=== PATIENT | male | born 1950 | race African-American/Black ===

== ENCOUNTER 2021-05-14 19:32 | Emergency (ER) | payer MEDICAID, MEDICARE ==
[~2021-05-14] VITALS: Ht 175.3 cm; Wt 140.9 kg
[~2021-05-14 19:32] MED LIST: ASPI-1009 PO; INSU100V9 SQ; METF-1157 PO; VALS160T2 PO
[2021-05-14 19:39] VITALS: BP 184/113
[2021-05-14 20:14] LABS: CLARITY,URINE CLOUDY (Clear); GLUCOSE, URINE NEGATIVE (Neg); KETONES,URINE TRACE mg/dl (Neg); LEUKOCYTE ESTERASE ,URINE MODERATE (Neg); NITRITES, URINE POSITIVE (Neg); OCCULT BLOOD,URINE LARGE (Neg); PH,URINE 7.5 (4.8-8.0); PROTEIN,URINE 100 mg/dl (Neg)
[2021-05-14 20:16] LABS: UA COLLECTION TYPE CLN CATCH MIDSTREAM
[2021-05-14 20:17] LABS: COLOR,URINE PINK (Yellow)
[2021-05-14 20:22] LABS: BACTERIA,URINE 2+ /HPF (Neg); RBC,URINE TNTC /HPF (0-2); SQUAMOUS EPITHELIAL CELL,UR FEW /LPF (FEW); WBC,URINE 20-30 /HPF (0-4)
[2021-05-14 20:23] LABS: WBC CLUMPS,URINE FEW /HPF (NEGATIVE)
[2021-05-14] MEDS ORDERED: cephalexin 250mg capsule PO ONE (21:00)
[2021-05-14] MEDS ORDERED: CEPH250T PO (21:33)
== END 2021-05-14 21:43 | disposition home or self-care (01) ==
LOC: ER 19:33
DX: N39.0 Urinary tract infection, site not specified (principal); I10 Essential (primary) hypertension; R31.9 Hematuria, unspecified; Q61.9 Cystic kidney disease, unspecified; N40.0 Benign prostatic hyperplasia without lower urinary tract symptoms; E78.00 Pure hypercholesterolemia, unspecified; E11.9 Type 2 diabetes mellitus without complications; Z79.82 Long term (current) use of aspirin; Z79.899 Other long term (current) drug therapy
CPT/HCPCS: 76770; 81001; 87088; 99284

== ENCOUNTER 2022-04-22 23:18 | Emergency (ER) | payer MEDICARE ==
[~2022-04-22] VITALS: Ht 177.8 cm; Wt 127.3 kg
[2022-04-23 00:42] LABS: BASOPHILS % (AUTO) 0.2 % (0-1); EOSINOPHILS # (AUTO) 0.2 X10'3 (0-0.9); HEMATOCRIT 44.7 % (42.0-52.0); HEMOGLOBIN 15.3 g/dl (14.0-17.9); LYMPHOCYTES # (AUTO) 2.6 X10'3 (1.1-4.8); LYMPHOCYTES % (AUTO) 28.9 % (21-51); MEAN CORPUSCULAR HEMOGLOBIN 31.1 PG (27.0-31.0); MEAN CORPUSCULAR HGB CONC 34.2 g/dL (33.0-36.5); MEAN CORPUSCULAR VOLUME 90.8 FL (78-98); MEAN PLATELET VOLUME 8.5 FL (7.4-10.4); MONOCYTES # (AUTO) 0.7 X10'3 (0-0.9); MONOCYTES % (AUTO) 7.5 % (2-12); NEUTROPHILS # (AUTO) 5.6 X10'3 (1.8-7.7); NEUTROPHILS % (AUTO) 61.4 % (42-75); PLATELET COUNT 262 X10'3 (140-440); RED BLOOD COUNT 4.92 X10'6 (4.70-6.10); RED CELL DISTRIBUTION WIDTH 14.3 % (11.5-14.5); WHITE BLOOD COUNT 9.2 X10'3 (4.5-11.0)
[2022-04-23 00:58] LABS: ALANINE AMINOTRANSFERASE 18 U/L (12-78); ALBUMIN 3.6 G/DL (3.4-5.0); ALBUMIN/GLOBULIN RATIO 0.9 (1.1-1.5); ALKALINE PHOSPHATASE 84 IU/L (46-116); ANION GAP 8 (8-16); ASPARTATE AMINO TRANSFERASE 22 U/L (10-37); BILIRUBIN,TOTAL 0.5 MG/DL (0.1-1.0); BLOOD UREA NITROGEN 14 MG/DL (7-18); BUN/CREATININE RATIO 10.8 (5.4-32.0); CHLORIDE 106 MMOL/L (99-107); GLUCOSE 117 MG/DL (70-104); LIPASE 120 U/L (73-393); POTASSIUM 3.7 MMOL/L (3.5-5.1); SODIUM 143 MMOL/L (135-145); TOTAL CARBON DIOXIDE 29.3 MMOL/L (24-32); TOTAL PROTEIN 7.6 G/DL (6.4-8.2); eGFR 65 ML/MIN
[2022-04-23 01:03] LABS: CLARITY,URINE CLEAR (Clear); COLOR,URINE YELLOW (Yellow); GLUCOSE, URINE NEGATIVE (Neg); KETONES,URINE NEGATIVE (Neg); LEUKOCYTE ESTERASE ,URINE NEGATIVE (Neg); NITRITES, URINE NEGATIVE (Neg); OCCULT BLOOD,URINE NEGATIVE (Neg); PROTEIN,URINE NEGATIVE (Neg)
[2022-04-23 01:13] LABS: UA COLLECTION TYPE VOIDED
[2022-04-23] MEDS ORDERED: normal saline 1000ML IV soln IVB ONE (01:40)
[2022-04-23] MEDS ORDERED: ketorolac trometh. 30mg/ml inj. IV ONE (01:40)
[2022-04-23] MEDS ORDERED: ketorolac trometh. 30mg/ml inj. IM ONE (01:55)
[2022-04-23 02:16] VITALS: BP 158/106
== END 2022-04-23 02:18 | disposition home or self-care (01) ==
LOC: ER 23:18
DX: K80.50 Calculus of bile duct without cholangitis or cholecystitis without obstruction (principal); I10 Essential (primary) hypertension; E78.00 Pure hypercholesterolemia, unspecified; E11.9 Type 2 diabetes mellitus without complications
CPT/HCPCS: 36415; 80053; 81003; 83690; 85025; 96372; 99283; J1885; J7030

== ENCOUNTER 2022-05-09 01:50 | Emergency (ER) | payer MEDICARE ==
[~2022-05-09] VITALS: Ht 175.3 cm; Wt 130.0 kg
[2022-05-09 02:00] VITALS: BP 125/92
[2022-05-09] MEDS ORDERED: ketorolac trometh inj. 60 MG/2 ML VIAL IM ONE (03:25)
[2022-05-09] MEDS ORDERED: acetaminophen 325mg tablet PO ONE (03:25)
== END 2022-05-09 05:03 | disposition home or self-care (01) ==
LOC: ER 01:50
DX: M54.59 Other low back pain (principal); M25.442 Effusion, left hand; I10 Essential (primary) hypertension; E11.9 Type 2 diabetes mellitus without complications; E78.00 Pure hypercholesterolemia, unspecified; Z79.899 Other long term (current) drug therapy; Z79.1 Long term (current) use of non-steroidal anti-inflammatories (NSAID)
CPT/HCPCS: 72131; 96372; 99285; J1885

== ENCOUNTER 2024-07-21 09:14 | Inpatient (IN) | payer MEDICARE ==
[2024-07-21] VITALS (14 sets, daily range): BP systolic 93–121; BP diastolic 63–85; PULSE 80–115; RESP 16–19; TEMP 97.9–98.3; O2SAT 92–98
[~2024-07-21] VITALS: Ht 175.3 cm; Wt 110.0 kg
--- NOTE | 2024-07-21 09:20 | ELECTROCARDIOGRAPH REPORT ---
[facility] Test Date: 2024-07-21 Test Time: 09:19:43 Pat Name: ARNOL LAGUERRE Department: EMERGENCY ROOM Room: Gender: M Retail Business Manager: BRADLY : 1950 Requested By: CLARIBEL ARZATE Order Number: [id number] Reading MD: Dr. Claribel Arzate Measurements Intervals [place] Rate: 105 P: -52 CT: 186 QRS: -71 QRSD: 144 T: 68 QT: 382 QTc: 506 Interpretive Statements Sinus or ectopic atrial tachycardia Probable left atrial enlargement Right bundle branch block Inferior infarct, old Probable anterior infarct, age indeterminate Lateral leads are also involved Electronically Signed On 07-21-2024 9:41:[address] Claribel Arzate Please click the below link to view image of tracing.
--- NOTE | 2024-07-21 10:09 | Physician Documentation ---
History of Present Illness ~ Chief Complaint: Chest Pain Stated Complaint: CP Time Seen by MD: 09:28 OK to notify your PCP?: Yes Primary Medical Doctor: dr. lopez Source: patient, RN/MD Mode of Arrival: EMS Exam Limitations: no limitations HPI 74 year old male with a history of diabetes seen in bed 10 presents to the emergency department via EMS from home for complaints of chest pain that began at 0800 today. Patient states he was at rest on his couch when pain began and states that it radiates to his jaw. Patient denies any cardiac history. Patient denies any other associated symptoms at this time. Patient denies any other alleviating or exacerbating factors. Medication Reconciliation Allergies: Coded Allergies: No Known Allergies (Unverified , 04/22/22) Scheduled Amlodipine* (Norvasc*), 5 TAB PO DAILY, (Reported) Atorvastatin Calcium (Atorvastatin Calcium), 1 TAB PO DAILY, (Reported) Lisinopril* (Lisinopril*), 1 TAB PO DAILY, (Reported) Metformin Hcl* (Glucophage*), 850 MG PO BID, (Reported) Discontinued Medications Amlodipine Besylate (Amlodipine Besylate), 1 TAB PO DAILY, (Reported) Discontinued Reason: patient no longer taking Aspirin (Aspirin), 81 MG PO DAILY Discontinued Reason: patient no longer taking Insulin Glargine,Hum.rec.anlog (Lantus), 10 UNIT SQ PRN Discontinued Reason: patient no longer taking Valsartan* (Diovan*), 160 MG PO Q24H Discontinued Reason: patient no longer taking Past Medical History Past Medical History: High Cholesterol, Hypertension, Diabetes Past Surgical History: no surgical history Alcohol Use: None Drug Use: none Lives with: Spouse Lives In: Home Review of Systems All Other Systems at this time: Reviewed and Negative ROS As stated above in the HPI, otherwise all systems are reviewed and negative. Physical Exam Vital Signs: RN Vital Signs have been reviewed: Yes, Temperature: 97.9, Source: Oral, Heart Rate: 108, Respiratory Rate: 14, BP: 95/65, Pulse Oximetry: 99, Weight: 110.000 Oxygen Flow Rate: 3.0 Pulse Oximetry Reflects: adequate oxygenation Physical Exam General: The patient is well developed, well nourished, nontoxic appearing and is in no acute distress. Skin: Joyce, warm and dry with no rashes. HEENT: Head was normocephalic and atraumatic. Eyes - pupils equal, round, reactive to light and accommodation. Extraocular movements were intact. Conjunctivae were nonicteric. Ears - bilateral tympanic membranes were normal. The mouth and oropharynx were clear with moist mucous membranes. There were no pharyngeal exudates or erythema. Neck: Supple and nontender. There was no jugular venous distention, lymphadenopathy, thyromegaly or masses. Chest: Clear to auscultation bilaterally without wheezes, rales or rhonchi. No accessory muscle use. No dullness to percussion. Heart: Rate regular and rhythmic. S1, S2. No murmurs. Palpation of the chest wall was normal. No rubs or thrills. Abdomen: Soft, nontender and nondistended. Positive bowel sounds. No guarding or rebound. No hepatosplenomegaly or palpable masses. Extremities: No cyanosis, clubbing or edema. The patient moves all extremities. Pulses were equal and symmetric. Neurologic: Cranial nerves II-XII were intact. Sensation was intact to light touch throughout. Motor strength was 5/5 in all four extremities. Deep tendon reflexes were intact in both upper and lower extremities. Psychologic: The patient was oriented to person, place and time. The patient demonstrated appropriate judgement and insight. Progress Progress Note 1124: The case was discussed with [facility] team who were informed on the patients case and kindly agreed to admission. Results/Orders Reviewed/noted all lab results: Yes Results/Orders Orders - YEVGENIY TRAN MD Chest,Single View (07/21/24 09:15) Monitor (07/21/24:15) Saline Lock (07/21/24:15) Oxygen (07/21/24:15) Electrocardiogram (07/21/24:15) Electrocardiogram (07/21/24:15) Page Hospitalist (07/21/24 11:) Fill Out Med Reconciliation (07/21/24:) Page Hospitalist (07/21/24:) Completed Orders - YEVGENIY TRAN MD Chest,Single View (07/21/24 09:15) Cbc/Diff (07/21/24 09:15) BMP (07/21/24 09:15) PBNP (07/21/24 09:15) Electrocardiogram (07/21/24 09:15) Hs Troponin I W Calculations (07/21/24 09:15) Hs Troponin I W Calculations (07/21/24 11:15) Hs Troponin I W Calculations (07/21/24 12:15) MG (07/21/24 09:15) Electrocardiogram (07/21/24 09:15) Pt Inr (07/21/24 09:15) PTT (07/21/24 09:15) Nitroglycerin 0.4mg/Hr Patch (Nitro-Dur (07/21/24 11:15) Ua With Microscopic (07/21/24 11:01) Hgb A1c (07/21/24 10:10) Vital Signs 07/21/24 07/21/24 07/21/24 07/21/24 09:21 09:46 09:56 10:11 Temp 97.9 Pulse 108 102 Resp 14 15 B/P (MAP) 95/65 106/66 (79) Pulse Ox 99 96 O2 Delivery Nasal Cannula* O2 Flow Rate 3.0 3 2.0 FiO2 32 Laboratory Tests Test 07/21/24 10:10 07/21/24 11:01 07/21/24 11:18 White Blood Count 9.0 Red Blood Count 4.83 Hemoglobin 15.4 Hematocrit 45.1 Mean Corpuscular Volume 93.3 Mean Corpuscular Hemoglobin 31.9 H Mean Corpuscular Hemoglobin Concent 34.2 Red Cell Distribution Width 14.1 Platelet Count 223 Mean Platelet Volume 8.6 Neutrophils (%) (Auto) 75.9 H Lymphocytes (%) (Auto) 14.3 L Monocytes (%) (Auto) 8.0 Eosinophils (%) (Auto) 1.6 Basophils (%) (Auto) 0.2 Neutrophils # (Auto) 6.8 Lymphocytes # (Auto) 1.3 Monocytes # (Auto) 0.7 Eosinophils # (Auto) 0.1 Basophils # (Auto) 0.0 CBC Comment Prothrombin Time 10.3 INR International Normalized Ratio 1.0 Activated Partial Thromboplast Time 30 Coagulation Comments Sodium Level 145 Potassium Level 4.0 Chloride Level 108 H Carbon Dioxide Level 30.7 Anion Gap 6 L Blood Urea Nitrogen 12 Creatinine 1.30 H Estimated GFR/1.73 m2 65 BUN/Creatinine Ratio 9.2 L Glucose Level 143 H Hemoglobin A1c 5.7 Calcium Level 8.9 Magnesium Level 1.6 Troponin I High Sensitivity 10 12 Pro-B-Type Natriuretic Peptide 126 Albumin 3.1 L Chemistry Comments Urine Specimen Description Cln catch midstream Urine Color Yellow Urine Clarity Clear Urine pH 6.0 Urine Specific [place] 1.010 Urine Protein Negative Urine Glucose (UA) Negative Urine Ketones Negative Urine Occult Blood Negative Urine Nitrite Negative Urine Bilirubin Negative Urine Urobilinogen 4.0 H Urine Leukocyte Esterase Small H Urine RBC None seen Urine WBC 5-10 H Urine Squamous Epithelial Cells Few Urine Bacteria None seen Urine Mucus Few Volume Urine Centrifuged 10 ml Urine Comment Urine Opiates Screen Negative Urine Methadone Screen Negative Urine Fentanyl Screen Negative Urine Barbiturates Screen Negative Urine Phencyclidine Screen Negative Urine Amphetamines Screen Negative Urine Benzodiazepines Screen Negative Urine Cocaine Screen Negative Urine Cannabinoids Screen Negative Drug Screen Comment Troponin I High Sens Percent Delta 20 Troponin I Hi Sens Absolute Change 2 Re-Evaluation Re-Evaluation : Re-Evaluation: Improved Progress Patient was seen and examined. Patient was given reassurance. Patient was complaining of some chest pain. Laboratory work was obtained patient was placed on a monitor. Patient's troponins were negative. Patient's creatinine was slightly elevated at 1.30 and glucose was elevated at 143. Troponins were negative. CBC within normal limits coagulation within normal limits D-dimer slightly elevated at 1.38 negative tox screen urinalysis showed some leukocyte esterase as well as elevated WBCs consistent with the UTI. Patient was then admitted to the hospitalist service for further workup and care. CTA was obtained and was negative for pulmonary embolism. Patient will be admitted for cardiac stress test or possible cardiac catheterization if indicated. Patient did received nitroglycerin and then later some pain medications including narcotics. Hospitalist was consulted and they gave him subcu heparin and admitted him for further workup and care. Continuous front desk monitor interpretation shows sinus tachycardia heart rate 100s, abnormal, my interpretation. Pulse oximetry monitor interpretation shows some low oxygenation at 99% on 3 L oxygen. EKG/XRAY/CT/US/VASC/MRI EKG #1: Additional Comment [facility] Test Date: 2024-07-21 Test Time: 10:48:50 Pat Name: ARNOL LAGUERRE Department: [facility]- Patient ID: [id number] Room: Gender: M Computer Game Programmer: : 1950 Requested By: YEVGENIY TRAN Order Number: [id number] Reading MD: Dr. Yevgeniy Tran Measurements Intervals [place] Rate: 105 P: 119 WI: 197 QRS: 129 QRSD: 147 T: 23 QT: 363 QTc: 480 Interpretive Statements Sinus tachycardia Probable left atrial enlargement RBBB and LPFB Probable anterior infarct, age indeterminate Lateral leads are also involved Electronically Signed On 07-21-2024 11:17:[address] Yevgeniy Tran Please click the below link to view image of tracing. EKG Date and Time:07/21/24 1048 Electronically Signed by: YEVGENIY TRAN MD Date and Time: 07/21/24 1117 EKG #2: Additional Comment [facility] Test Date: 2024-07-21 Test Time: 09:19:43 Pat Name: ARNOL LAGUERRE Department: EMERGENCY ROOM Room: Gender: Computer Game Programmer: BRADLY : 1950 Requested By: YEVGENIY TRAN Order Number: [id number] Machelle MD: Dr. Yevgeniy Tran Measurements Intervals [place] Rate: 105 P: -52 WI: 186 QRS: -71 QRSD: 144 T: 68 QT: 382 QTc: 506 Interpretive Statements Sinus or ectopic atrial tachycardia Probable left atrial enlargement Right bundle branch block Inferior infarct, old Probable anterior infarct, age indeterminate Lateral leads are also involved Electronically Signed On 07-21-2024 9:41:[address] Yevgeniy Tran Please click the below link to view image of tracing. EKG Date and Time:07/21/24 0919 Electronically Signed by: YEVGENIY TRAN MD Date and Time: 07/21/24 0941 Chest X-Ray : Additional Comments DI CHEST,SINGLE VIEW, HISTORY: CP COMPARISON: None None TECHNICAL DATA: 1 view of the chest was obtained. FINDINGS: Lines and tubes: None Cardiomediastinal silhouette: normal Pulmonary vasculature: normal Lung expansion: normal Lung airspace: normal Lung interstitium: normal Pleura: normal Pneumothorax: no Bones: Unremarkable Other: no IMPRESSION: No acute intrathoracic abnormality. Electronically Signed by:MONTEZ BELTRAN MD Date & Time: 07/21/24 1008 Heart Score: Heart Score Response (Comments) Value History Highly Suspicious 2 EKG Repolarization Disturb 1 Age >65 2 Risk Factors 1 or 2 risk factors 1 Troponin Normal limit 0 Total 6 Medical Decision Making Additional info obtained from: old records Differential Dx:Considerations: Include: angina, aortic dissection, chest wall pain, cholelithiasis, CHF, costochondritis, esophageal reflux/spasm, gastritis, myocardial infarction, pericarditis, pleuritis, pneumothorax, pulmonary embolus, other Departure Time of Disposition: 11:29 Disposition: 09 ADMITTED INPATIENT Admitted to Inpatient Unit: yes, to hospitalist Impression: Primary Impression: Unstable angina Condition: Guarded Referrals: NO PRIMARY CARE PROVIDER (PCP) Education Educated: Patient Educated regarding: diagnosis Signature Scribe Signature: Scribed for Yevgeniy Tran MD by Latia Nguyen . 07/21/24 11:06 Attestation: The note accurately reflects work and decisions made by me.Yevgeniy Tran MD 07/23/24 04:11 YEVGENIY TRAN MD Jul 21, 2024 10:09 LATIA KOEHLER Jul 21, 2024 11:06
[2024-07-21 10:24] LABS: BASOPHILS % (AUTO) 0.2 % (0-1); EOSINOPHILS # (AUTO) 0.1 X10'3 (0-0.9); EOSINOPHILS % (AUTO) 1.6 % (0-6); HEMATOCRIT 45.1 % (42.0-52.0); HEMOGLOBIN 15.4 g/dl (14.0-17.9); LYMPHOCYTES # (AUTO) 1.3 X10'3 (1.1-4.8); LYMPHOCYTES % (AUTO) 14.3 % (21-51); MEAN CORPUSCULAR HEMOGLOBIN 31.9 PG (27.0-31.0); MEAN CORPUSCULAR HGB CONC 34.2 g/dL (33.0-36.5); MEAN CORPUSCULAR VOLUME 93.3 FL (78-98); MEAN PLATELET VOLUME 8.6 FL (7.4-10.4); MONOCYTES # (AUTO) 0.7 X10'3 (0-0.9); NEUTROPHILS # (AUTO) 6.8 X10'3 (1.8-7.7); NEUTROPHILS % (AUTO) 75.9 % (42-75); PLATELET COUNT 223 X10'3 (140-440); RED BLOOD COUNT 4.83 X10'6 (4.70-6.10); RED CELL DISTRIBUTION WIDTH 14.1 % (11.5-14.5)
[2024-07-21 10:32] LABS: APTT 30 SECONDS (22-32); PROTHROMBIN TIME 10.3 SECONDS (9.0-12.0)
[2024-07-21 10:41] LABS: ALBUMIN 3.1 G/DL (3.4-5.0); ANION GAP 6 (8-16); BLOOD UREA NITROGEN 12 MG/DL (7-18); BUN/CREATININE RATIO 9.2 (10.0-20.0); CALCIUM 8.9 MG/DL (8.5-10.1); CHLORIDE 108 MMOL/L (99-107); GLUCOSE 143 MG/DL (70-104); MAGNESIUM 1.6 MG/DL (1.5-2.4); PRO BRAIN NATRIURETIC PEPTIDE 126 PG/ML (0-450); SODIUM 145 MMOL/L (135-145); TOTAL CARBON DIOXIDE 30.7 MMOL/L (24-32); eCRCL 48 ML/MIN; eGFR 65 ML/MIN
--- NOTE | 2024-07-21 10:50 | ELECTROCARDIOGRAPH REPORT ---
[facility] Test Date: 2024-07-21 Test Time: 10:48:50 Pat Name: ARNOL LAGUERRE Department: [facility] Patient ID: [facility]-[id number] Room: Gender: M Retail Wireless Sales Representative: : 1950 Requested By: CLARIBEL ARZATE Order Number: [id number] Reading MD: Dr. Claribel Arzate Measurements Intervals [place] Rate: 105 P: 119 NM: 197 QRS: 129 QRSD: 147 T: 23 QT: 363 QTc: 480 Interpretive Statements Sinus tachycardia Probable left atrial enlargement RBBB and LPFB Probable anterior infarct, age indeterminate Lateral leads are also involved Electronically Signed On 07-21-2024 11:17:[address] Clariebl Arzate Please click the below link to view image of tracing.
[2024-07-21] MEDS: nitroGLYCERIN 0.4mg/hour patch TD ONE (11:20)
[2024-07-21 11:24] LABS: BILIRUBIN,URINE NEGATIVE (Neg); CLARITY,URINE CLEAR (Clear); COLOR,URINE YELLOW (Yellow); GLUCOSE, URINE NEGATIVE (Neg); KETONES,URINE NEGATIVE (Neg); LEUKOCYTE ESTERASE ,URINE SMALL (Neg); NITRITES, URINE NEGATIVE (Neg); OCCULT BLOOD,URINE NEGATIVE (Neg); PROTEIN,URINE NEGATIVE (Neg)
[2024-07-21 11:25] LABS: UA COLLECTION TYPE CLN CATCH MIDSTREAM
[2024-07-21 11:33] LABS: BACTERIA,URINE NONE SEEN /HPF (Neg); MUCUS STRANDS FEW /LPF (Neg); RBC,URINE NONE SEEN /HPF (0-2); SQUAMOUS EPITHELIAL CELL,UR FEW /LPF (FEW)
[2024-07-21] MEDS ORDERED: LISI40TA13 PO (12:04)
[2024-07-21] MEDS ORDERED: ATOR40TA72 PO (12:04)
[2024-07-21] MEDS ORDERED: AMLO5TAB16 PO (12:04)
[2024-07-21] MEDS ORDERED: morphine 2 MG/ML inj. syringe IV PRN (13:45)
[2024-07-21] MEDS ORDERED: metoprolol tartrate 1mg/ml inj IV PRN (13:45)
[2024-07-21] MEDS ORDERED: potassium Cl 40MEQ/1/2NS 520ml 520 ML IV PRN (13:45)
[2024-07-21] MEDS ORDERED: magnesium hydroxide 30ml (MOM) UD suspension PO PRN (13:45)
[2024-07-21] MEDS ORDERED: HYDROmorphone 1 mg/ml syringe IV ONE (13:45)
[2024-07-21] MEDS ORDERED: magnesium sulf-water 2g/50mL 50 ML IV PRN (13:45)
[2024-07-21] MEDS ORDERED: aminophylline 500mg/20ml vial IV PRN (13:45)
[2024-07-21] MEDS ORDERED: nitroGLYCERIN 0.4mg SUBLingual tab SL PRN (13:45)
[2024-07-21] MEDS ORDERED: potassium Cl 20 mEq SR tablet PO PRN ×2 (13:45)
[2024-07-21] MEDS ORDERED: aspirin 325mg tablet PO ONE (13:45)
[2024-07-21] MEDS ORDERED: magnesium sulf-water 4G/100mL 100 ML IV PRN (13:45)
[2024-07-21] MEDS ORDERED: mag hydrox/Alum hydrox/simeth 30ml oral suspension PO PRN (13:45)
[2024-07-21] MEDS ORDERED: ondansetron/PF 4mg/2ml inj IV PRN (13:45)
[2024-07-21] MEDS ORDERED: acetaminophen 325mg tablet PO PRN ×2 (13:45)
[2024-07-21] MEDS ORDERED: PERFLUTREN PROTEIN-A MICROSPHR (Optison) 0.22 MG/ML 3ML VIAL IV ONE (13:45)
[2024-07-21] MEDS: metoprolol tartrate 25mg tablet PO ONE (13:45)
[2024-07-21] MEDS ORDERED: magnesium Cl slow-release 64mg tablet PO PRN (13:45)
[2024-07-21 14:37] LABS: URINE AMPHETAMINE SCREEN NEGATIVE (Neg); URINE BARBITUATE SCREEN NEGATIVE (Neg); URINE BENZODIAZEPINES SCREEN NEGATIVE (Neg); URINE CANNABINOID SCREEN NEGATIVE (Neg); URINE COCAINE SCREEN NEGATIVE (Neg); URINE METHADONE SCREEN NEGATIVE (Neg); URINE OPIATE SCREEN NEGATIVE (Neg); URINE PHENCYCLIDINE SCREEN NEGATIVE (Neg)
[2024-07-21 14:45] LABS: HEMOGLOBIN A1C 5.7 % (4.5-6.2)
[2024-07-21 15:45] LABS: D-DIMER 1.38 MG/L FEU (0-0.50)
[2024-07-21] MEDS ORDERED: AMLO2.5T2 PO (16:10)
[2024-07-21] MEDS: normal saline 1000ml 1,000 ML IV SCH (16:20)
--- NOTE | 2024-07-21 16:45 | HISTORY AND PHYSICAL-Residence ---
History & Physical Providers to CC Resident Creating Document: MARTHA GLASS, RES ~ History of Present Illness Primary Medical Doctor: dr. lopez Reason for Admit\Complaint: Unstable angina History of Present Illness The patient is a 74-year-old male with past medical history of diabetes mellitus who presented to the ED with complaints of chest pain. The patient woke up this morning, was resting on his sofa when a crushing type of chest pain radiating to bilateral jaws started. It persisted till he reached to the ER. Associated with shortness of breath. Not associated with radiation to arm, perspiration, palpitations. History of similar kind of chest pains present. Last one was three years ago. Did not seek any medical attention. He saw a geospatial information technologist 20 years ago and was prescribed nitroglycerin spray. He uses nitroglycerin when he gets chest pains. He ran out of the spray this morning which is why he called 911. His chest pain decreased after nitroglycerin by EMS. He also received aspirin 325 mg by the paramedics. The patient denies fevers, palpitations, nausea, vomiting, diarrhea, constipation, abdominal pain, burning micturition. Does not use CPAP or home oxygen. Smokes cigarettes. Does not use inhalers. Allergies: Coded Allergies: No Known Allergies (Unverified , 04/22/22) Home Medications Home Medications Active Reported Norvasc* (Amlodipine Besylate) 2.5 Mg Tablet 5 Tab PO DAILY 30 Days Lisinopril* (Lisinopril) 40 Mg Tablet 1 Tab PO DAILY Atorvastatin Calcium 40 Mg Tablet 1 Tab PO DAILY Glucophage* (Metformin HCl) 850 Mg Tablet 850 Mg PO BID Past Medical History Past Medical History Diabetes mellitus on metformin Hypertension Hyperlipidemia Past Surgical History Surgical History Comment None Family history: Nonsignificant. Past Social History Social History Comment The patient lives in his house with his . His has bone cancer and the patient does chemotherapy infusions for her. He ambulates independently without assistance. PCP - Dr. Dillard at [facility]. Does not follow up with any other specialists. Smokes about five cigarettes per day and has been smoking since last 10 years. Denies alcohol and other illicit drug abuse. Smoking: Non-Smoker Alcohol Use: None Drug Use: None Lives with: Spouse Lives In: Home ROS All Other Systems: Reviewed and Negative ROS Reviewed in full. Negative except for pertinent positives in HPI. Exam Vitals: Vital Signs Date Time Temp Pulse Resp B/P (MAP) Pulse Ox O2 Delivery O2 Flow Rate FiO2 07/21/24 15:59 98 07/21/24 15:50 16 98 Room Air 0.0 32 07/21/24 15:16 97.9 111/78 (89) General: Adult male, alert and oriented x4, not in acute distress Head: Normocephalic with an atraumatic Eyes: Pupils- 3mm, reacting to light, conjunctiva- anicteric Nose and throat: No polyps, septum- normal, no mucosal ulcers Neck: Supple, no lymphadenopathy, no carotid bruit Respiratory: No use of accessory muscles of respiration, Bilateral normal vesicular breath sounds heard. No wheeze, rhochi or creps Cardiac: Tachycardia, S1-S2 heard, rhythm regular, no gallop/murmur Abdomen: non distended, no tenderness, no organomegaly, bowel sounds - heard Extremities: no clubbing, no pedal edema, no deformities, peripheral pulses - 2+ Skin: warm and dry, no rash, no purpura Neuro: No focal deficit, gross cranial nerve exam - normal Diagnostic Data Last Recorded Lab Results: 07/21/24 1010 07/21/24 1010 Diagnostic Data: Laboratory Tests Test 07/21/24 10:10 07/21/24 15:21 Prothrombin Time 10.3 SECONDS (9.0-12.0) INR International Normalized Ratio 1.0 INR Activated Partial Thromboplast Time 30 SECONDS (22-32) Coagulation Comments D-Dimer 1.38 MG/L FEU (0-0.50) H D-Dimer Comment Counseling Services Smoking & Tobacco Cessation: > 10 Minutes Advance Care Planning Advanced Care plannin - 30 Minutes Additional Plan A 74-year-old male with past medical history of diabetes mellitus, presented to the ED with complaints of chest pain. He is being admitted into the hospital for further evaluation and management. Plan: Unstable angina HEART score 7 EKG shows tachycardia with a rate of 105. T-wave inversions in V2, V3, V4, right bundle branch block. Patient received aspirin 325 mg by EMS. Atorvastatin 80 mg ordered. Started the patient on metoprolol tartrate 25 mg b.i.d. Continue aspirin 81 mg daily and atorvastatin 40 mg daily. Serial troponins negative. Follow up with the troponin in a.m. Follow up with echocardiogram. Lexiscan in a.m. We will consult Cardiology if needed. Elevated dimer 1.38. Wells score for PE 1.5. Follow up with CTA chest. Simple cystitis Urinalysis positive for leukocyte esterase and few WBCs. Started the patient on IV ceftriaxone. BIANCA vs CKD Creatinine 1.30, EGFR 65. Started the patient on IV fluids 100 mL/hour. The patient will receive IV contrast for CTA chest today. Continue IV fluids and follow up BMP tomorrow. Follow up with urine lytes. Hypertension Continue home lisinopril 40 mg and amlodipine 5 mg daily. Diabetes Patient is on metformin at home. HB A1c is 5.7. Hyperlipidemia Continue atorvastatin 40 mg daily. Code Status: Full code DVT Prophylaxis: Heparin Analgesia/Sedation: Morphine Lines/Tubes: PIV Nutrition: Heart healthy diet, NPO from midnight PT: Not required Prognosis: Guarded Disposition: We will admit the patient into medical [facility]. Ashish in a.m. Martha Glass MD Internal Medicine Resident PGY-1 Date of Service: Jul 21, 2024 Billing Provider: BETTY TUCKER MD,MARTHA ISAAC, RES Jul 21, 2024 16:45
[2024-07-21] MEDS ORDERED: iohexol 350MG/ML 100ml bottle IV ONE (17:11)
[2024-07-21] MEDS: regadenoson 0.4mg/5ml syringe IV PRN (17:24)
[2024-07-21] MEDS: K and/or MAG REPLACEMENT MC SCH (20:00)
[2024-07-21] MEDS: heparin, porcine 5000 units/ml vial SQ SCH (20:00)
[2024-07-21] MEDS: docusate sod 100mg capsule PO SCH (20:00)
[2024-07-21] MEDS: CefTRIAXone/D5W-Rocephin 1gm 50 ML IV ONE (20:03)
[2024-07-21] MEDS: atorvastatin 20mg tablet PO ONE (20:10)
[2024-07-21] MEDS: metoprolol tartrate 25mg tablet PO SCH (20:11)
[2024-07-21] MEDS ORDERED: morphine 4 MG/ML inj SYRINge IV PRN (21:12)
--- NOTE | 2024-07-22 00:26 | RADIOLOGY REPORT ---
CT ANGIOGRAM CHEST WITH CONTRAST FOR PULMONARY EMBOLUS CLINICAL HISTORY: shortness of breath, elevated dimer TECHNIQUE: Helical axial scans of the chest during dynamic intravenous contrast injection. Pulmonary embolism protocol. Multiplanar reformats. Postprocessing MIP images. One or more of the following rad iation dose reduction techniques were used for this examination: automated exposure control, adjustme nt of the mA and/or kV according to patient size, use of iterative reconstruction technique. COMPARISON: Chest x-ray obtained earlier the same day. FINDINGS: Pulmonary arteries: Adequate enhancement of the pulmonary arterial system to the proximal segmental l evels. No discrete filling defects to suggest pulmonary embolism are identified at this time. Mediastinum: Heart is mildly enlarged. Coronary artery calcifications. Enlargement of the left thyro id. No discretely enlarged mediastinal lymph nodes identified. No pericardial effusion. Lung parenchyma: Paraseptal emphysematous changes predominantly in the upper lobes. Atelectasis / sc arring in the lower lobes and lingula. No dominant consolidation is identified at this time. Pleura: No sizable pleural effusions or pneumothorax. Chest wall and axillae: No axillary adenopathy noted. Upper abdomen: Cholelithiasis. Left renal cystic lesions partially imaged. No other acute findings as visualized. IMPRESSION: No definite evidence of pulmonary embolism. Upper lobe predominant paraseptal emphysematous changes. Enlarged left thyroid. Ultrasound may be obtained to further evaluate.
[2024-07-22 02:00] VITALS: BP 115/64; PULSE 78; RESP 18; TEMP 98.3; O2SAT 91
[2024-07-22 06:00] VITALS: BP 125/85; PULSE 86; RESP 23; TEMP 99.1; O2SAT 96
[2024-07-22 06:34] LABS: BASOPHILS % (AUTO) 0.4 % (0-1); EOSINOPHILS % (AUTO) 0.4 % (0-6); HEMATOCRIT 44.1 % (42.0-52.0); HEMOGLOBIN 15.1 g/dl (14.0-17.9); LYMPHOCYTES # (AUTO) 1.9 X10'3 (1.1-4.8); LYMPHOCYTES % (AUTO) 18.9 % (21-51); MEAN CORPUSCULAR HEMOGLOBIN 31.5 PG (27.0-31.0); MEAN CORPUSCULAR HGB CONC 34.2 g/dL (33.0-36.5); MEAN CORPUSCULAR VOLUME 92.2 FL (78-98); MONOCYTES # (AUTO) 1.1 X10'3 (0-0.9); MONOCYTES % (AUTO) 10.7 % (2-12); NEUTROPHILS % (AUTO) 69.6 % (42-75); PLATELET COUNT 219 X10'3 (140-440); RED BLOOD COUNT 4.79 X10'6 (4.70-6.10); RED CELL DISTRIBUTION WIDTH 13.9 % (11.5-14.5)
[2024-07-22 07:09] LABS: ALANINE AMINOTRANSFERASE 10 U/L (12-78); ALBUMIN 2.9 G/DL (3.4-5.0); ALBUMIN/GLOBULIN RATIO 0.8 (1.1-1.5); ALKALINE PHOSPHATASE 69 IU/L (46-116); ANION GAP 9 (8-16); ASPARTATE AMINO TRANSFERASE 16 U/L (10-37); BILIRUBIN,TOTAL 1.3 MG/DL (0.1-1.0); BLOOD UREA NITROGEN 16 MG/DL (7-18); BUN/CREATININE RATIO 13.2 (10.0-20.0); CALCIUM 8.6 MG/DL (8.5-10.1); CHLORIDE 108 MMOL/L (99-107); CHOL/HDL RATIO 1.6 (0.00-4.99); CHOLESTEROL 75 MG/DL (0-200); CREATININE 1.21 MG/DL (0.60-1.10); GLUCOSE 103 MG/DL (70-104); HDL CHOLESTEROL 48 MG/DL (35-60); LDL CHOLESTEROL 24 MG/DL (50-100); MAGNESIUM 1.6 MG/DL (1.5-2.4); POTASSIUM 3.9 MMOL/L (3.5-5.1); SODIUM 143 MMOL/L (135-145); TOTAL CARBON DIOXIDE 26.5 MMOL/L (24-32); TOTAL PROTEIN 6.6 G/DL (6.4-8.2); TRIGLYCERIDES 39 MG/DL (20-135); eCRCL 52 ML/MIN; eGFR 71 ML/MIN
[2024-07-22 07:51] LABS: THYROID STIMULATING HORMONE 1.18 ulU/ml (0.34-4.50)
[2024-07-22] MEDS ORDERED: atorvastatin 20mg tablet PO SCH (08:00)
[2024-07-22] MEDS ORDERED: aspirin 81mg, enteric-coated 1 TAB TABLET.DR PO SCH (08:00)
[2024-07-22] MEDS ORDERED: amLODIPine 5mg tablet PO SCH (08:00)
[2024-07-22] MEDS ORDERED: non-formulary drug (Atorvastatin Calcium 1 TAB) PO SCH (08:00)
[2024-07-22] MEDS ORDERED: lisinopril 20mg tablet PO SCH (08:00)
[2024-07-22] MEDS ORDERED: CefTRIAXone/D5W-Rocephin 1gm 50 ML IV SCH (08:00)
--- NOTE | 2024-07-22 08:22 | RADIOLOGY REPORT ---
CLINICAL INFORMATION: 74 years old, Male; unstable angina. TECHNIQUE: 8.7 mCi of technetium 99m sestamibi was infused at rest. Rest SPECT imaging was obtained. Routine protocol for Lexiscan stress study was performed with 0.4 mg of Lexiscan. 35.1 mCi of techne tium 99m sestamibi was infused. Stress SPECT imaging was obtained. COMPARISON: None FINDINGS: Resting heart rate of 104 BPM increased to maximum rate of 116 BPM. Resting blood pressure of 121/85, also 121/85 with stress. There were no significant EKG changes. There was no chest pain. There is no evidence of stress induced ischemia or stress dilatation of the left ventricle. TID ratio is 1.03. Wall motion imaging appears normal. Calculated left ventricular ejection fraction is 60 %. IMPRESSION: 1. No evidence of stress-induced ischemia. 2. Left ventricular ejection fraction is 60%.
--- NOTE | 2024-07-22 19:11 | DISCHARGE SUMMARY-Residence ---
Discharge Summary Providers to CC Resident Creating Document: COURTNEY GLASS RES ~ Discharge Summary Admission Diagnosis: Unstable angina Hospital Course DATE OF ADMISSION: DATE OF DISCHARGE: Date of Service: Jul 22, 2024 Billing Provider: BETTY TUCKER MD, SOWMYA MANJARI, MARSHALL Jul 22, 2024 19:11
== END 2024-07-22 08:16 | disposition left against medical advice (07) | DRG 311 ==
LOC: ER 09:14 → ED HOLD 11:28 → PCU 3S 15:01
PROVIDERS: ADMIT Family Medicine; ATTEND Family Medicine
PROC: 4A02XM4 Measurement of Cardiac Total Activity, External Approach (ICD-10-PCS; principal; 2024-07-21)
PROC: 3E033HZ Introduction of Radioactive Substance into Peripheral Vein, Percutaneous Approach (ICD-10-PCS; 2024-07-21)
PROC: B32T1ZZ Computerized Tomography (CT Scan) of Left Pulmonary Artery using Low Osmolar Contrast (ICD-10-PCS; 2024-07-21)
PROC: B3201ZZ Computerized Tomography (CT Scan) of Thoracic Aorta using Low Osmolar Contrast (ICD-10-PCS; 2024-07-21)
PROC: B32S1ZZ Computerized Tomography (CT Scan) of Right Pulmonary Artery using Low Osmolar Contrast (ICD-10-PCS; 2024-07-21)
DX: I20.0 Unstable angina (principal); N17.9 Acute kidney failure, unspecified; F17.210 Nicotine dependence, cigarettes, uncomplicated; I45.10 Unspecified right bundle-branch block; N30.90 Cystitis, unspecified without hematuria; E78.5 Hyperlipidemia, unspecified; N18.9 Chronic kidney disease, unspecified; I12.9 Hypertensive chronic kidney disease with stage 1 through stage 4 chronic kidney disease, or unspecified chronic kidney disease; E11.22 Type 2 diabetes mellitus with diabetic chronic kidney disease; Z79.899 Other long term (current) drug therapy; Z53.29 Procedure and treatment not carried out because of patient's decision for other reasons
CPT/HCPCS: 36415; 71045; 71275; 78452; 80048; 80053; 80061; 80305; 81001; 83036; 83735; 83880; 84443; 84484; 85025; 85379; 85610; 85730; 87081; 93005; 93017; 96365; 99285; A9500; G0378; J0696; J2785; J7030; Q9967